=== PATIENT | female | born 1995 ===

== ENCOUNTER 2018-12-17 18:12 | Emergency (ER) | payer OTHER ==
--- NOTE | 2018-12-17 19:59 | Emergency Department Report ---
Blank Doc - Documentation Documentation: 23 y/o female with vagus complaints of sob, vaginal d/c, nervous. dizziness, s haking. 3 neg preg test. lmp 11/10/18
[2018-12-17 23:42] VITALS: BP 124/86
--- NOTE | 2018-12-18 01:50 | Emergency Department Report ---
ED General Adult HPI - General Chief complaint: Dizziness Stated complaint: SOB/DIZZY/HANDS SHAKY Time Seen by Provider: 12/18/18 01:08 Source: patient Mode of arrival: Ambulatory Limitations: No Limitations - History of Present Illness Initial comments: Pt is a 23 yo female who presents to the ED with c/o light headedness that began last night. She has associated difficulty catching her breath, generalized weakness, and tremors. She denies any CP, fever, N/V, numbness, unilateral weakness, or BURRIS. She states she has been under increased amounts of stress lately. 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 She has not previously been diagnosed with anxiety. Denies any PMHx, no allergies, and is not on any daily medications. Severity scale (0 -10): 7 - Related Data Previous Rx's Medication Instructions Recorded Last Taken Type hydrOXYzine PAMOATE [Vistaril] 25 mg PO Q6HR PRN #10 capsule 12/18/18 Unknown Rx Allergies Allergy/AdvReac Type Severity Reaction Status Date / Time No Known Allergies Allergy Unverified 12/17/18 18:16 ED Review of Systems ROS: Stated complaint: SOB/DIZZY/HANDS SHAKY Other details as noted in HPI Comment: All other systems reviewed and negative ED Past Medical Hx - Past Medical History Previous Medical History?: No - Surgical History Past Surgical History?: No - Social History Smoking Status: Never Smoker Substance Use Type: None - Medications Home Medications: Home Medications Medication Instructions Recorded Confirmed Last Taken Type hydrOXYzine PAMOATE [Vistaril] 25 mg PO Q6HR PRN #10 capsule 12/18/18 Unknown Rx ED Physical Exam - General Limitations: No Limitations General appearance: alert, in no apparent distress - Head Head exam: Present: atraumatic, normocephalic - Eye Eye exam: Present: normal appearance - ENT ENT exam: Present: mucous membranes moist - Neck Neck exam: Present: normal inspection, full ROM. Absent: tenderness, meningismus - Respiratory Respiratory exam: Present: normal lung sounds bilaterally. Absent: respiratory distress, wheezes, rales, rhonchi, stridor, chest wall tenderness, accessory muscle use, decreased breath sounds, prolonged expiratory - Cardiovascular Cardiovascular Exam: Present: regular rate, normal rhythm, normal heart sounds. Absent: systolic murmur, diastolic murmur, rubs, gallop - GI/Abdominal GI/Abdominal exam: Present: soft. Absent: distended, tenderness, guarding, rebound, rigid - Neurological Exam Neurological exam: Present: alert, oriented X3, CN II-XII intact, normal gait, other (normal heel to bolden, normal finger to nose, 5/5 strength in the BLE/BUE, normal sensation, no neuro deficit). Absent: motor sensory deficit - Psychiatric Psychiatric exam: Present: normal affect, anxious (mildly) - Skin Skin exam: Present: warm, dry, intact ED Course Vital Signs 12/17/18 12/17/18 19:54 23:41 Temperature 98.3 F 97.9 F Pulse Rate 80 82 Respiratory 16 16 Rate Blood Pressure 151/81 124/86 O2 Sat by Pulse 99 98 Oximetry ED Medical Decision Making - Medical Decision Making Pt is a 23 yo female who presents to the ED with c/o light headedness that began last night. She has associated difficulty catching her breath, generalized weakness, and tremors. She denies any CP, fever, N/V, numbness, unilateral weakness, or BURRIS. She states she has been under increased amounts of stress lately. 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 She has not previously been diagnosed with anxiety. Denies any PMHx, no allergies, and is not on any daily medications. No SI/HI, hallucinations. Pt has no symptoms at all currently. Examination is completely normal. VSS. Will give pt short course of vistaril as needed for anxi ety. Advised pt to follow up with her PCP for further anxiety management. Return to the emergency room for any new or worsening symptoms. Critical care attestation.: If time is entered above; I have spent that time in minutes in the direct care of this critically ill patient, excluding procedure time. ED Disposition Clinical Impression: Anxiety Disposition: DC-01 TO HOME OR SELFCARE Is pt being admited?: No Does the pt Need Aspirin: No Condition: Stable Instructions: Anxiety (ED) Additional Instructions: Please follow up with a primary care doctor in the next 2-3 days for further treatment and management. Take medication as needed for anxiety. Return to the emergency room for any new or worsening symptoms. Prescriptions: hydrOXYzine PAMOATE [Vistaril] 25 mg PO Q6HR PRN #10 capsule PRN Reason: Anxiety Referrals: [facility] MD JESSICA [Primary Care Provider] - 2-3 Days Time of Disposition: 01:57 Print Language: [place]
== END 2018-12-18 02:07 | disposition home or self-care (01) ==
LOC: ED 18:12
DX: F41.9 Anxiety disorder, unspecified (principal)